=== PATIENT | female | born 1980 | race Caucasian/White ===

== ENCOUNTER → 2023-06-25 | Emergency (ER) | payer OTHER ==
[~2023-06-25] VITALS: Ht 162.6 cm; Wt 72.6 kg
[~2023-06-25] MED LIST: FLUCONAZOLE 100 MG TABLET ONE; FLUCONAZOLE 100 MG TABLET PO ONE
--- NOTE | 2023-06-25 07:23 | NUR ---
seen and examined by
[2023-06-25] MEDS: COD LIVER OIL/ZINC OXIDE OINT 113 GM TUBE TOP PRN ×2 (08:02→08:09)
--- NOTE | 2023-06-25 08:19 | NUR ---
provided clothes and food
--- NOTE | 2023-06-25 08:20 | NUR ---
VSS at this time
[2023-06-25 11:39] VITALS: BP 122/80; TEMP 98; O2SAT 99
== END | disposition home or self-care (01) ==
LOC: ER 07:23
DX: B37.2 Candidiasis of skin and nail (principal); L30.9 Dermatitis, unspecified
CPT/HCPCS: A4663